=== PATIENT | female | born 1935 | race Caucasian/White ===

== ENCOUNTER 2017-06-11 11:55 | Outpatient (CLI) | payer MEDICARE, OTHER ==
[2017-06-11 12:51] LABS: IRON 78 ug/dL (28-170); TOTAL IRON BINDING CAPACITY 392 ug/dL (250-450); TRANSFERRIN 280 mg/dL (192-382)
== END 2017-06-11 11:56 | disposition home or self-care (01) ==
LOC: LAB 11:55
PROVIDERS: ATTEND Internal Medicine Gastroenterology
DX: D50.9 Iron deficiency anemia, unspecified (principal)
CPT/HCPCS: 36415; 82728; 83540; 84466; 85014

== ENCOUNTER 2018-01-21 09:04 | Outpatient (CLI) | payer MEDICARE, OTHER ==
[2018-01-21 09:31] LABS: BASOPHILS % (AUTO) 0.7 %; EOSINOPHILS # (AUTO) 0.2 10^3/uL (0.0-0.7); HGB - HEMOGLOBIN 13.8 g/dL (12.0-16.0); LYMPHOCYTES # (AUTO) 1.3 10^3/uL (1.5-3.5); LYMPHOCYTES % (AUTO) 26.2 %; MEAN CORPUSCULAR HEMOGLOBIN 31.8 pg (27.0-31.0); MEAN CORPUSCULAR HGB CONC 33.3 g/dL (32.0-36.0); MEAN CORPUSCULAR VOLUME 95.2 fL (81.0-99.0); MEAN PLATELET VOLUME 7.8 fL (7.9-10.8); MONOCYTES # (AUTO) 0.5 10^3/uL (0.0-1.0); MONOCYTES % (AUTO) 9.3 %; NEUTROPHILS # (AUTO) 3.1 10^3/uL (1.5-6.6); NEUTROPHILS % (AUTO) 60.8 %; PLT - PLATELET COUNT 178 10^3/uL (130-450); RED BLOOD COUNT 4.35 10^6/uL (4.20-5.40); RED CELL DISTRIBUTION WIDTH 13.7 % (12.0-15.0); WHITE BLOOD COUNT 5.1 x10^3/uL (4.8-10.8)
[2018-01-21 10:00] LABS: % IRON SATURATION 30 % (20-50); IRON 100 ug/dL (28-170); TOTAL IRON BINDING CAPACITY 336 ug/dL (250-450); TRANSFERRIN 240 mg/dL (192-382)
== END 2018-01-21 09:05 | disposition home or self-care (01) ==
LOC: LAB 09:04
PROVIDERS: ATTEND Internal Medicine Gastroenterology
DX: D50.9 Iron deficiency anemia, unspecified (principal); K55.21 Angiodysplasia of colon with hemorrhage
CPT/HCPCS: 36415; 82728; 83540; 84466; 85025

== ENCOUNTER 2018-06-17 14:36 | Outpatient (CLI) | payer MEDICARE, OTHER ==
[2018-06-17 15:20] LABS: BASOPHILS % (AUTO) 0.7 %; EOSINOPHILS # (AUTO) 0.2 10^3/uL (0.0-0.7); EOSINOPHILS % (AUTO) 3.9 %; HGB - HEMOGLOBIN 11.9 g/dL (12.0-16.0); LYMPHOCYTES # (AUTO) 1.6 10^3/uL (1.5-3.5); LYMPHOCYTES % (AUTO) 32.5 %; MEAN CORPUSCULAR HEMOGLOBIN 32.6 pg (27.0-31.0); MEAN CORPUSCULAR HGB CONC 35.1 g/dL (32.0-36.0); MEAN PLATELET VOLUME 7.7 fL (7.9-10.8); MONOCYTES # (AUTO) 0.4 10^3/uL (0.0-1.0); MONOCYTES % (AUTO) 8.7 %; NEUTROPHILS # (AUTO) 2.6 10^3/uL (1.5-6.6); NEUTROPHILS % (AUTO) 54.2 %; PLT - PLATELET COUNT 184 10^3/uL (130-450); RED BLOOD COUNT 3.66 10^6/uL (4.20-5.40); RED CELL DISTRIBUTION WIDTH 14.2 % (12.0-15.0); WHITE BLOOD COUNT 4.9 x10^3/uL (4.8-10.8)
[2018-06-17 15:35] LABS: % IRON SATURATION 31 % (20-50); IRON 98 ug/dL (28-170); TOTAL IRON BINDING CAPACITY 321 ug/dL (250-450); TRANSFERRIN 229 mg/dL (192-382)
== END 2018-06-17 14:37 | disposition home or self-care (01) ==
LOC: LAB 14:36
PROVIDERS: ATTEND Internal Medicine Gastroenterology
DX: K55.8 Other vascular disorders of intestine (principal)
CPT/HCPCS: 36415; 82728; 83540; 84466; 85025

== ENCOUNTER 2018-07-01 12:17 | Outpatient (CLI) | payer MEDICARE, OTHER ==
--- NOTE | 2018-07-01 14:34 | CT Report ---
Reason: LLQ ABDOMINAL PAIN Procedure Date: 07/01/2018 Accession Number: [id number] / [id number] Procedure: CT - Abdomen/Pelvis W/O CPT Code: FULL RESULT: EXAM: CT ABDOMEN AND PELVIS EXAM DATE: 07/01/2018 01:05 PM. CLINICAL HISTORY: LLQ ABDOMINAL PAIN. COMPARISONS: None. TECHNIQUE: Routine helical CT imaging was performed through the abdomen and pelvis. IV contrast: . Enteric contrast: No. Reconstructions: Coronal and sagittal. In accordance with CT protocol optimization, one or more of the following dose reduction techniques were utilized for this exam: automated exposure control, adjustment of mA and/or KV based on patient size, or use of iterative reconstructive technique. FINDINGS: Lung Bases: Unremarkable. Liver: Normal. No masses. Gallbladder/Bile Ducts: Status post cholecystectomy. Spleen: Normal. Pancreas: Normal. Adrenal Glands: Normal. Kidneys: Normal. No masses or hydronephrosis. Peritoneal Cavity/Bowel: The colon is redundant and demonstrates extensive diverticulosis within the pelvis the distal sigmoid colon demonstrates focal thickening and hazy surrounding fat compatible with diverticulitis. There is no evidence of abscess formation on the noncontrast study, limited sensitivity for this. No free fluid, free air or adenopathy. No masses. The appendix is well visualized and normal. Pelvic Organs: Normal. The bladder and visualized pelvic organs are within normal limits. Vasculature: Atherosclerosis without aneurysm. Bones: Degenerative changes of the lumbar spine including 5 mm of grade 1 anterolisthesis of L4 on L5. No aggressive osseous lesions detected. Other: None. IMPRESSION: Redundant sigmoid colon with extensive diverticulosis. Suspect mild focal diverticulitis in the distal sigmoid colon. RAD[facility] We attempted to directly relate the above findings over the phone with the office of Dr. Ha Salas repeatedly starting at approximately 1:10 PM and most recently at 14:30 hrs on 07/01/18. The physician in private practice has received our phone calls and agreed to reach out to the physicians and will attempt to find a medical provider willing accept a message. We will continue to reach out to the practice. ADDENDUM: 07/01/18 15:26 The findings were discussed directly with Dr. Salas at 3:[address] Rony Reed 07/01/2018.
== END 2018-07-01 12:18 | disposition home or self-care (01) ==
LOC: DI 12:17
PROVIDERS: ATTEND Internal Medicine Gastroenterology
DX: Q43.8 Other specified congenital malformations of intestine (principal); K57.30 Diverticulosis of large intestine without perforation or abscess without bleeding
CPT/HCPCS: 74176

== ENCOUNTER 2019-02-23 14:22 | Outpatient (CLI) | payer MEDICARE, OTHER ==
--- NOTE | 2019-02-24 08:45 | Mammography Report ---
Reason: ENCNTR SCREEN MAMMOGRAM FOR MALIGNANT NEOPLASM OF Procedure Date: 02/23/2019 Accession Number: [id number] / [id number] Procedure: FARHAD - Screening Mammo w/Vinnie CPT Code: FULL RESULT: EXAM: Screening Mammo w/Vinnie DATE: 02/23/2019 3:13 PM CLINICAL HISTORY: Screening encounter. History of early menses and late childbearing. TECHNIQUE: (B) - Bilateral CC and MLO views were obtained. COMPARISON: 11/23/2015 through 09/28/2009. PARENCHYMAL PATTERN: (A) - The breast(s) demonstrate(s) scattered fibroglandular densities. FINDINGS: There are typically benign large rodlike calcifications. A typically benign intramammary infiltrates noted in the left upper outer breast is stable. There are no suspicious masses, calcifications, or areas of distortion. IMPRESSION: Benign findings. BI-RADS category 2. RECOMMENDATION: (ANNUAL) - Recommend routine annual screening mammography. BI-RADS CATEGORY: (2) - Benign Findings. STANDARD QUALIFYING STATEMENTS: 1. This examination was not reviewed with the aid of Computer-Aided Detection (CAD). 2. A negative or benign imaging report should not preclude biopsy if clinically suspicious findings are present. 3. Dense breasts may obscure an underlying neoplasm. 4. This examination was reviewed with the aid of 3D breast imaging (tomosynthesis).
== END 2019-02-23 14:23 | disposition home or self-care (01) ==
LOC: DI 14:22
PROVIDERS: ATTEND Internal Medicine
DX: Z12.31 Encounter for screening mammogram for malignant neoplasm of breast (principal)
CPT/HCPCS: 77063; 77067

== ENCOUNTER 2020-02-01 07:47 | Outpatient (CLI) | payer MEDICARE, OTHER | END 2020-02-01 07:48 | disposition EMS.NT | LOC: EMS 07:47 | PROVIDERS: ATTEND Surgery | DX: F41.9 Anxiety disorder, unspecified (principal) ==

== ENCOUNTER 2020-08-09 15:45 | Outpatient (CLI) | payer MEDICARE, OTHER ==
--- NOTE | 2020-08-09 16:44 | Ultrasound Report ---
PROCEDURE: Duplex Ext Veins Left INDICATIONS: LLE EDEMA, PAIN TECHNIQUE: Real-time imaging, as well as color and pulse Doppler interrogation, were performed of the lower extr emity deep veins from the inguinal ligament to the popliteal fossa. COMPARISON: None. FINDINGS: The deep veins are normally compressible, and free of intraluminal thrombus. Color and pu lse Doppler demonstrate normal phasic intraluminal flow. There is normal augmentation response to di stal compression maneuver. Small amount of fluid in the left popliteal fossa measuring 4.3 x 0.6 x 1.3 cm, compatible with a Eloisa er's cyst. There is trace knee joint effusion. IMPRESSION: 1. No evidence for deep venous thrombosis. 2. A small Beasley's cyst. 3. Trace knee joint effusion. Reviewed by: Carlos Wasserman MD on 08/09/2020 4:43 PM PST Approved by: Carlos Wasserman MD on 08/09/2020 4:43 PM PST Station ID: [id number]
== END 2020-08-09 15:46 | disposition home or self-care (01) ==
LOC: DI 15:45
PROVIDERS: ATTEND Internal Medicine
DX: M71.22 Synovial cyst of popliteal space [Baker], left knee (principal); M25.462 Effusion, left knee

== ENCOUNTER 2021-04-26 13:23 | Outpatient (CLI) | payer MEDICARE, OTHER ==
[2021-04-26 13:37] LABS: BASOPHILS % (AUTO) 0.5 %; EOSINOPHILS # (AUTO) 0.2 10^3/uL (0.0-0.7); EOSINOPHILS % (AUTO) 2.7 %; HCT - HEMATOCRIT 40.2 % (37.0-47.0); HGB - HEMOGLOBIN 13.1 g/dL (12.0-16.0); LYMPHOCYTES # (AUTO) 1.5 10^3/uL (1.5-3.5); LYMPHOCYTES % (AUTO) 25.5 %; MEAN CORPUSCULAR HEMOGLOBIN 31.3 pg (27.0-31.0); MEAN CORPUSCULAR HGB CONC 32.6 g/dL (32.0-36.0); MEAN CORPUSCULAR VOLUME 96.2 fL (81.0-99.0); MEAN PLATELET VOLUME 9.6 fL (7.9-10.8); MONOCYTES # (AUTO) 0.6 10^3/uL (0.0-1.0); MONOCYTES % (AUTO) 9.4 %; NEUTROPHILS # (AUTO) 3.6 10^3/uL (1.5-6.6); NEUTROPHILS % (AUTO) 61.7 %; PLT - PLATELET COUNT 194 10^3/uL (130-450); RED BLOOD COUNT 4.18 10^6/uL (4.20-5.40); RED CELL DISTRIBUTION WIDTH 13.4 % (12.0-15.0); WHITE BLOOD COUNT 5.9 x10^3/uL (4.8-10.8)
[2021-04-26 14:00] LABS: % IRON SATURATION 28 % (20-50); IRON 104 ug/dL (28-170); TOTAL IRON BINDING CAPACITY 372 ug/dL (250-450); TRANSFERRIN 266 mg/dL (192-382)
== END 2021-04-26 13:24 | disposition home or self-care (01) ==
LOC: LAB 13:23
PROVIDERS: ATTEND Internal Medicine
DX: D64.9 Anemia, unspecified (principal); K92.2 Gastrointestinal hemorrhage, unspecified; R53.83 Other fatigue; R53.1 Weakness
CPT/HCPCS: 36415; 82728; 83540; 84466; 85025

== ENCOUNTER 2021-10-02 08:00 | Outpatient (CLI) | payer MEDICARE, OTHER ==
[2021-10-02 16:47] LABS: RAPID STREP SCREEN Negative (Negative)
== END 2021-10-02 23:59 | disposition home or self-care (01) ==
LOC: LAB 08:00
PROVIDERS: ATTEND Internal Medicine
DX: R05.9 Cough, unspecified (principal); R07.0 Pain in throat; Z20.822 Contact with and (suspected) exposure to COVID-19
CPT/HCPCS: 87070; 87430; U0004

== ENCOUNTER 2021-10-26 13:21 | Outpatient (CLI) | payer MEDICARE, OTHER ==
[2021-10-26 13:38] LABS: BASOPHILS % (AUTO) 0.4 %; EOSINOPHILS # (AUTO) 0.1 10^3/uL (0.0-0.7); HCT - HEMATOCRIT 38.8 % (37.0-47.0); HGB - HEMOGLOBIN 13.1 g/dL (12.0-16.0); LYMPHOCYTES # (AUTO) 1.6 10^3/uL (1.5-3.5); LYMPHOCYTES % (AUTO) 32.7 %; MEAN CORPUSCULAR HEMOGLOBIN 31.5 pg (27.0-31.0); MEAN CORPUSCULAR HGB CONC 33.8 g/dL (32.0-36.0); MEAN CORPUSCULAR VOLUME 93.3 fL (81.0-99.0); MEAN PLATELET VOLUME 9.2 fL (7.9-10.8); MONOCYTES # (AUTO) 0.5 10^3/uL (0.0-1.0); MONOCYTES % (AUTO) 10.2 %; NEUTROPHILS # (AUTO) 2.7 10^3/uL (1.5-6.6); NEUTROPHILS % (AUTO) 54.5 %; PLT - PLATELET COUNT 197 10^3/uL (130-450); RED BLOOD COUNT 4.16 10^6/uL (4.20-5.40); RED CELL DISTRIBUTION WIDTH 13.2 % (12.0-15.0); WHITE BLOOD COUNT 4.9 x10^3/uL (4.8-10.8)
[2021-10-26 13:59] LABS: ALBUMIN 4.3 g/dL (3.2-5.5); ALBUMIN/GLOBULIN RATIO 1.5 (1.0-2.2); ALKALINE PHOSPHATASE 44 IU/L (42-121); ALT ALANINE AMINOTRANSFERASE 14 IU/L (10-60); AST ASPARTATE AMINOTRANSFERASE 21 IU/L (10-42); BILIRUBIN,TOTAL 0.7 mg/dL (0.2-1.0); BUN - BLOOD UREA NITROGEN 20 mg/dL (6-20); CALCIUM 9.6 mg/dL (8.5-10.3); CARBON DIOXIDE - CO2 26 mmol/L (21-32); CHLORIDE 101 mmol/L (101-111); CHOL/HDL RATIO 3.4 (<4.4); CHOLESTEROL 174 mg/dL; CREATININE 0.8 mg/dL (0.4-1.0); GFR - MDRD 68 (>89); GLUCOSE 94 mg/dL (70-100); HDL CHOLESTEROL 51 mg/dL; LDL CHOLESTEROL,CALCULATED 110 mg/dL; LDL/HDL RATIO 2.2 (<4.4); POTASSIUM 4.6 mmol/L (3.5-5.0); SODIUM 136 mmol/L (135-145); TOTAL PROTEIN 7.2 g/dL (6.7-8.2); TRIGLYCERIDES 66 mg/dL; VLDL CHOLESTEROL 13 mg/dL
[2021-10-26 14:59] LABS: ESTIMATED AVERAGE GLUCOSE 151 mg/dL (70-100); HEMOGLOBIN A1c% 6.9 % (4.27-6.07)
--- NOTE | 2021-10-26 15:17 | Ultrasound Report ---
PROCEDURE: Duplex Lwr Ext Arterial Bilat INDICATIONS: MUSCLE CRAMPS, NO DISTAL PULSE TECHNIQUE: Color and pulse Doppler interrogation was performed of both lower extremity arterial systems, with im age documentation. COMPARISON: None FINDINGS: Right lower extremity: Common femoral artery: 112 cm/sec, with triphasic flow. Deep femoral artery: 6 cm/sec, with triphasic flow. Proximal superficial femoral artery: 112 cm/sec, with triphasic flow. Mid superficial femoral artery: 87 cm/sec, with triphasic flow. Distal superficial femoral artery: 93 cm/sec, with triphasic flow. Popliteal artery: 14 cm/sec, with triphasic flow. Posterior tibial artery: 103 cm/sec, with biphasic flow. Anterior tibial artery/dorsalis pedis: 66/52 cm/sec, with biphasic flow. Cornelius-scale imaging description: No significant plaque. Left lower extremity: Common femoral artery: 118 cm/sec, with triphasic flow. Deep femoral artery: 66 cm/sec, with triphasic flow. Proximal superficial femoral artery: 91 cm/sec, with triphasic flow. Mid superficial femoral artery: 87 cm/sec, with triphasic flow. Distal superficial femoral artery: 63 cm/sec, with triphasic flow. Popliteal artery: 108 cm/sec, with biphasic flow. Posterior tibial artery: 86 cm/sec, with biphasic flow. Anterior tibial artery/dorsalis pedis: 68/46 cm/sec, with biphasic flow. Cornelius-scale imaging description: No significant plaque IMPRESSION: No significant plaque and no significant stenosis in the bilateral lower extremities. Reviewed by: Tuan Obando on 10/26/2021 3:16 PM PDT Approved by: Tuan Obando on 10/26/2021 3:16 PM PDT Station ID: [id number]
== END 2021-10-26 13:22 | disposition home or self-care (01) ==
LOC: DI 13:21
PROVIDERS: ATTEND Internal Medicine
DX: M62.838 Other muscle spasm (principal); R09.89 Other specified symptoms and signs involving the circulatory and respiratory systems; Z79.899 Other long term (current) drug therapy; Z13.6 Encounter for screening for cardiovascular disorders; R53.83 Other fatigue; R73.01 Impaired fasting glucose; D64.9 Anemia, unspecified; K92.2 Gastrointestinal hemorrhage, unspecified; J45.909 Unspecified asthma, uncomplicated; I48.91 Unspecified atrial fibrillation
CPT/HCPCS: 36415; 80053; 80061; 83036; 83721; 84443; 85025; 93925

== ENCOUNTER 2022-04-10 11:24 | Outpatient (CLI) | payer MEDICARE, OTHER ==
[2022-04-10 12:37] LABS: ESTIMATED AVERAGE GLUCOSE 137 mg/dL (70-100); HEMOGLOBIN A1c% 6.4 % (4.27-6.07)
== END 2022-04-10 11:25 | disposition home or self-care (01) ==
LOC: LAB 11:24
PROVIDERS: ATTEND Internal Medicine
DX: R73.01 Impaired fasting glucose (principal)
CPT/HCPCS: 36415; 83036

== ENCOUNTER 2022-04-26 17:05 | Outpatient (CLI) | payer MEDICARE, OTHER ==
--- NOTE | 2022-04-27 09:28 | XRAY Report ---
PROCEDURE: Chest 2 View X-Ray INDICATIONS: ACUTE COUGH TECHNIQUE: 2 view(s) of the chest. COMPARISON: None. FINDINGS: Surgical changes and devices: None. Lungs and pleura: No pleural effusions or pneumothorax. Lungs are clear. Mediastinum: Mediastinal contours are normal. Heart size is normal. Bones and chest wall: No suspicious bony abnormalities. Soft tissues appear unremarkable. IMPRESSION: No evidence for active disease in the chest. Reviewed by: Yuan Montoya MD on 04/27/2022 9:27 AM PDT Approved by: Yuan Montoya MD on 04/27/2022 9:27 AM PDT Station ID: [id number]
== END 2022-04-26 17:06 | disposition home or self-care (01) ==
LOC: DI 17:05
PROVIDERS: ATTEND Internal Medicine
DX: R05.1 Acute cough (principal)

== ENCOUNTER 2022-10-12 21:26 | Outpatient (CLI) | payer MEDICARE, OTHER | END 2022-10-12 21:27 | disposition critical access hospital (66) | LOC: EMS 21:26 | DX: R42 Dizziness and giddiness (principal); R25.1 Tremor, unspecified; R53.81 Other malaise | CPT/HCPCS: A0425; A0429 ==

== ENCOUNTER 2022-10-12 21:38 | Emergency (ER) | payer MEDICARE, OTHER ==
[2022-10-12 22:52] LABS: BASOPHILS % (AUTO) 0.8 %; EOSINOPHILS # (AUTO) 0.1 10^3/uL (0.0-0.7); EOSINOPHILS % (AUTO) 2.7 %; HCT - HEMATOCRIT 39.9 % (37.0-47.0); LYMPHOCYTES # (AUTO) 1.7 10^3/uL (1.5-3.5); MEAN CORPUSCULAR HEMOGLOBIN 30.6 pg (27.0-31.0); MEAN CORPUSCULAR HGB CONC 32.6 g/dL (32.0-36.0); MEAN CORPUSCULAR VOLUME 93.9 fL (81.0-99.0); MEAN PLATELET VOLUME 10.2 fL (7.9-10.8); MONOCYTES # (AUTO) 0.6 10^3/uL (0.0-1.0); MONOCYTES % (AUTO) 10.9 %; NEUTROPHILS # (AUTO) 2.7 10^3/uL (1.5-6.6); NEUTROPHILS % (AUTO) 52.4 %; PLT - PLATELET COUNT 168 10^3/uL (130-450); RED BLOOD COUNT 4.25 10^6/uL (4.20-5.40); RED CELL DISTRIBUTION WIDTH 14.1 % (12.0-15.0); WHITE BLOOD COUNT 5.2 x10^3/uL (4.8-10.8)
[2022-10-12 23:02] LABS: ALBUMIN 3.8 g/dL (3.2-5.5); ALBUMIN/GLOBULIN RATIO 1.5 (1.0-2.2); BILIRUBIN,TOTAL 0.9 mg/dL (0.2-1.0); CALCIUM 9.6 mg/dL (8.5-10.3); CREATININE 0.9 mg/dL (0.4-1.0); MAGNESIUM 2.1 mg/dL (1.7-2.8); POTASSIUM 4.3 mmol/L (3.5-5.0); TOTAL PROTEIN 6.4 g/dL (6.7-8.2)
--- NOTE | 2022-10-13 00:48 | ED Physician Documentation ---
PD HPI SYNCOPE - Stated complaint Stated Complaint: DIZZY, TREMORS - Chief complaint Chief Complaint: Cardiac - History obtained from History obtained from: Patient, EMS - History of Present Illness Witnessed: Witnessed Timing - onset: Today Duration: Other (the tremoring is improved and not lightheaded now. Still with the whispery voice.) Preceding symptoms: Light headed, Generalized weakness. No: Headache, Chest pain, Abdominal pain Associated symptoms: Other (she was doing light activity and reached forward and noted onset of feeling lightheaded. No vertigo per se. She did not have chest pain nor headache. Sat and rested but still lightheaded. Noted onset of tremoring/shaking extremities. She tried talking and noted it to be whispery. no focal weakness.). No: Chest pain, Palpitations, Dyspnea, Nausea / vomiting Contributing factors: No: Recent med change, Decreased PO intake Injury occurred: No: Fell, Head injury Similar symptoms before: No diagnosis (she has noted the tremoring when anxious or ill in the past. she says she has had the whispery voice happen intermittently, often triggered by an illness but not always, and has lasted anywhere from hours/days to even up to a few weeks at times. Had not been to provider during the episodes.) Recently seen: Other (had not been to provider with the voice change episode in the past but did discuss it with provider and was getting referral to ENT but pt did not ever follow up. She feels it can be left to improve on its own. Has not had problems eating nor breathing with it.) Review of Systems Constitutional: denies: Fever, Chills Eyes: denies: Loss of vision, Decreased vision Nose: denies: Rhinorrhea / runny nose, Congestion Throat: denies: Sore throat Cardiac: denies: Chest pain / pressure, Palpitations, Pedal edema, Calf pain Respiratory: denies: Cough GI: denies: Abdominal Pain, Nausea, Vomiting, Diarrhea Neurologic: reports: Generalized weakness. denies: Focal weakness, Numbness, Headache, Head injury PD PAST MEDICAL HISTORY - Past Medical History Cardiovascular: Atrial fibrillation Respiratory: Asthma Neuro: None Endocrine/Autoimmune: None - Past Surgical History Past Surgical History: Yes General: Cholecystectomy Derm: Skin cancer surgery - Present Medications Home Medications: Ambulatory Orders Medication Instructions Recorded Confirmed Aspirin [Aspir 81] 81 mg PO DAILY 10/25/13 10/12/22 Diltiazem HCl [Diltiazem 24Hr Cd] 120 mg PRN 10/25/13 10/25/13 Tiotropium [Spiriva] 4 puffs INH DAILY 10/25/13 10/12/22 - Allergies Allergies/Adverse Reactions: Allergies Allergy/AdvReac Type Severity Reaction Status Date / Time epinephrine Allergy Intermediate Rash Verified 10/25/13 01:49 grapefruit [Grapefruit] Allergy Intermediate Unknown Verified 10/25/13 03:01 iodine Allergy Intermediate Rash Verified 10/25/13 01:52 neomycin [Neomycin] Allergy Intermediate Rash Verified 10/25/13 01:52 Penicillins Allergy Intermediate Rash Verified 10/25/13 01:50 Sulfa (Sulfonamide Allergy Intermediate Rash Verified 10/25/13 01:51 Antibiotics) gabapentin Allergy Anaphylaxis Verified 10/12/22 22:06 prochlorperazine Allergy Anaphylaxis Verified 10/12/22 22:06 [From Compazine] ropivacaine Allergy Anaphylaxis Verified 10/12/22 22:06 sulfite Allergy Anaphylaxis Verified 10/12/22 22:04 albuterol AdvReac Intermediate Respiratory Verified 10/25/13 02:18 codeine AdvReac Intermediate Nausea/Vomi Verified 10/25/13 02:54 ting montelukast sodium * AdvReac Intermediate Respiratory Verified 10/25/13 02:17 [From Singulair] sotalol [Sotalol] AdvReac Intermediate Depression/ Verified 10/25/13 02:55 Exhaustion tetracycline [Tetracycline] AdvReac Intermediate fever Verified 10/25/13 02:16 zolpidem tartrate * AdvReac Intermediate wired Verified 10/25/13 02:54 [From Ambien] antazoline phosphate * AdvReac Unknown Verified 10/25/13 02:53 [From Vasocon-A] minocycline [From Minocin] AdvReac Rash Verified 10/12/22 22:08 montelukast [From Singulair] AdvReac Respiratory Verified 10/12/22 22:08 naphazoline HCl * AdvReac Unknown Verified 10/25/13 02:53 [From Vasocon-A] thallium-201 AdvReac Unknown Verified 10/12/22 22:11 warfarin AdvReac Unknown Verified 10/12/22 22:11 zolpidem [From Ambien] AdvReac Anxiety Verified 10/12/22 22:11 Shrimp Allergy Intermediate Unknown Uncoded 10/25/13 02:58 - Social History Does the pt smoke?: No Smoking Status: Never smoker Does the pt drink ETOH?: Yes Does the pt have substance abuse?: No - Immunizations Immunizations are current?: Yes - POLST Patient has POLST: No PD ED PE NORMAL - Vitals Vital signs reviewed: Yes - General General: Alert and oriented X 3, No acute distress, Well developed/nourished, Other (whispery voice. I would not say hoarse. Just not able to get loud sound. ) - HEENT HEENT: PERRL, EOMI, Moist mucous membranes, Pharynx benign, Other (denies vision change. ) - Neck Neck: Supple, no meningeal sign, No adenopathy - Cardiac Cardiac: RRR, Other (1/6 murmur without radiation. ) - Respiratory Respiratory: Clear bilaterally - Abdomen Abdomen: Soft, Non tender - Derm Derm: Normal color, Warm and dry - Extremities Extremities: No deformity, No tenderness to palpate - Neuro Neuro: Alert and oriented X 3, ampoule filler 2-12 intact, No motor deficit, No sensory deficit. No: Normal speech (content and articulation is good, just the tone is whispery. ) Eye Opening: Spontaneous Motor: Obeys Commands Verbal: Oriented GCS Score: 15 Results - Vitals Vitals: Vital Signs - 24 hr 10/12/22 10/12/22 10/13/22 21:40 23:06 01:03 Temperature 36.4 C L Heart Rate 74 67 66 Respiratory 19 17 17 Rate Blood Pressure 163/61 H 151/53 H 154/62 H O2 Saturation 96 95 97 Oxygen O2 Source Room air - EKG (time done) 21;46 Rate: Rate (enter#) (74) Rhythm: NSR [place]: Normal Intervals: Normal [place] QRS: Normal Ischemia: Normal ST segments. No: ST elevation c/w ischemia, ST depression - Labs Labs: Laboratory Tests 10/12/22 10/12/22 10/12/22 21:55 21:55 21:55 WBC 5.2 RBC 4.25 Hgb 13.0 Hct 39.9 MCV 93.9 MCH 30.6 MCHC 32.6 RDW 14.1 Plt Count 168 MPV 10.2 Neut # (Auto) 2.7 Lymph # (Auto) 1.7 [place] # (Auto) 0.6 Eos # (Auto) 0.1 Baso # (Auto) 0.0 Absolute Nucleated RBC 0.00 Nucleated RBC % 0.0 ESR 3 Sodium 139 Potassium 4.3 Chloride 105 Carbon Dioxide 25 Anion Gap 9.0 BUN 29 H Creatinine 0.9 Estimated GFR (MDRD) 60 L Glucose 165 H Calcium 9.6 Magnesium 2.1 Total Bilirubin 0.9 AST 18 ALT 11 Alkaline Phosphatase 45 Total Protein 6.4 L Albumin 3.8 Globulin 2.6 Albumin/Globulin Ratio 1.5 Lipase 41 TSH 10/12/22 21:55 WBC RBC Hgb Hct MCV MCH MCHC RDW Plt Count MPV Neut # (Auto) Lymph # (Auto) [place] # (Auto) Eos # (Auto) Baso # (Auto) Absolute Nucleated RBC Nucleated RBC % ESR Sodium Potassium Chloride Carbon Dioxide Anion Gap BUN Creatinine Estimated GFR (MDRD) Glucose Calcium Magnesium Total Bilirubin AST ALT Alkaline Phosphatase Total Protein Albumin Globulin Albumin/Globulin Ratio Lipase TSH 2.33 PD Medical Decision Making - ED course Complexity details: considered differential, d/w patient ED course: the lightheadedness is not clear cause. Got basic labs and ecg without abnormality. Vitals are good here. The lightheaded is improved. Her tremoring is improved as well and it was generalized so i presume just related to anxious/catecholamine of the event. the whipsery voice is still present. we do not have ability to visiualize the vocal cords easily here. Could try with GlideScope but patient prefers not. She had had reactions to topical anesth in the past and does not want to try spray in throat. Unclear if it is a vocal cord process. She does not have any facial droop nor ptosis to suggest [place]. No neck masses nor tenderness. No other CN weaknesses nor abnormal. Central causes I would think would have other symptoms too. to be so local, could consider focal lesions like ms, expiecially in lieu of her description of recurring episodes that can last even days/weeks. Could consider MRI brain and neck to evaluate it. I do not see emergent timeing for it as has had it previously without problems. She was cautiioned about elevated sleeping in concern of aspiration if it were vocal cord dysfunciton. She says she does anyway. Departure - Departure Disposition: Home, Self Care Clinical Impression: Hoarseness of voice, Tremor, Generalized weakness Condition: Stable Record reviewed to determine appropriate education?: Yes Instructions: ED Weakness [facility] Follow-Up: Martina Sanchez MD [Provider Admit Priv/Credential] - Comments: It is unclear the cause of your tremoring and general weakness. You seem to be well here now. Your blood pressure and heart rate and basic blood tests are normal. Regarding the hoarseness of your voice, especially as you describe episodes of it lasting for weeks at a time in the past, I am not sure what the cause of it is. Considerations would be for problems related to the vocal cord some cells versus the innervation around the neck. Other consideration would be brain/neurologic with localized neurologic dysfunction. Intermittent episodes could happen like that with conditions such as MS. If you wish to pursue it more, follow-up with your primary care with considerations of MRI of the head and neck and possibly a ENT referral to evaluate the vocal cords and throat. It is possible to have this happen from other more simple conditions such as functional neurologic disorder or muscle tension dysphonia which is like a fatiguing of the vocal cords. Follow-up with your primary care if you have persisting symptoms or recurrent symptoms with regard to the weakness and tremor. Discharge Date/Time: 10/13/22 01:27
[2022-10-13 01:03] VITALS: BP 154/62
[2022-10-15 07:08] LABS: COMPLEMENT C3 99 mg/dL (82-167); COMPLEMENT C4 20 mg/dL (12-38)
== END 2022-10-13 01:27 | disposition home or self-care (01) ==
LOC: EDUNIT# → ED 21:38
DX: R49.0 Dysphonia (principal); R25.1 Tremor, unspecified; R53.1 Weakness
CPT/HCPCS: 36415; 80053; 83690; 83735; 84443; 85025; 85651; 86160; 99283

== ENCOUNTER 2022-10-26 12:53 | Outpatient (CLI) | payer MEDICARE, OTHER ==
[~2022-10-26 12:53] MED LIST: GADOBUTROL 10 MMOL/10 ML VIAL ONE
--- NOTE | 2022-10-26 15:52 | MRI Report ---
PROCEDURE: BRAIN WO INDICATIONS: MYOCLONUS TECHNIQUE: Noncontrast axial T1 spin echo, axial T2 fast spin echo, sagittal and axial FLAIR, coronal T2 fast sp in echo, axial gradient echo, axial diffusion and ADC through the brain. COMPARISON: None. FINDINGS: Image quality: Excellent. CSF Spaces: Basal cisterns are patent. No extra-axial fluid collections. Ventricles are normal in size and shape. Brain: No intracranial masses or hemorrhage. Cornelius/white matter interface is normal. There is modera te diffuse cerebral volume loss. Mild degree of patchy high FLAIR signal within the periventricular a nd subcortical white matter. Brainstem appears normal. Diffusion-weighted images demonstrate no acut e ischemic insult. No chronic ischemic insults. Normal intravascular flow voids are present. Skull and face: Calvarium has normal marrow signal. Orbits appear normal. Sinuses: There is mild mucosal thickening within the bilateral ethmoid air cells. Mastoids are clear. IMPRESSION: 1. Volume loss and small vessel ischemic disease. 2. No acute process. No recent infarct. 3. Sinus disease. Reviewed by: Soco Greenfield MD on 10/26/2022 3:50 PM PDT Approved by: Soco Greenfield MD on 10/26/2022 3:50 PM PDT Station ID: [id number]
== END 2022-10-26 12:54 | disposition home or self-care (01) ==
LOC: DI 12:53
PROVIDERS: ATTEND Internal Medicine
DX: I67.82 Cerebral ischemia (principal); G25.3 Myoclonus; J32.9 Chronic sinusitis, unspecified

== ENCOUNTER 2023-03-18 13:53 | Emergency (ER) | payer MEDICARE, OTHER ==
--- NOTE | 2023-03-18 15:01 | ED Physician Documentation ---
PD HPI CHEST PAIN - Stated complaint Stated Complaint: HIGH BLOOD PRESSURE - Chief complaint Chief Complaint: Cardiac - Additional information Additional information: This is an 87-year-old female with a past medical history of hypertension, atrial fibrillation (on aspirin, no ac per personal preference, didn't tolerated warfarin and was worried about the newer DOACs), anxiety. She presents today due to concerns about her blood pressure. She states that she felt "fuzzy" and somewhat dizzy earlier today and also had some mild shortness of breath and mild chest pressure. She checked her blood pressure at the time and it was quite el evated in the 190s over 100s. She does admit that she had not taken her losartan for several months or had been taking it only intermittently, because she previously was dealing with some occasional falls thought related to her losartan. She states her doctor nor her cobol developer recommended that she stop it but she stopped it on her own. When she would like her blood pressure was elevated, she took a dose of 75 mg of losartan which was her prior dose. She is feeling better at this time, is not having any chest pain, dyspnea, headache, vision changes, confusion or alteration in mental status, no numbness tingling in her extremities, no ataxia, no speech changes. She states that she was supposed to drive over to [place] to visit her who is in an assisted living facility there but she did not feel like she should drive due to how she was feeling. She does endorse significant stress recently and anxiety about care of her among other things. PD PAST MEDICAL HISTORY - Past Medical History Past Medical History: Yes Cardiovascular: Atrial fibrillation Respiratory: Asthma Neuro: None Endocrine/Autoimmune: None - Past Surgical History Past Surgical History: Yes General: Cholecystectomy Derm: Skin cancer surgery - Present Medications Home Medications: Ambulatory Orders Medication Instructions Recorded Confirmed Aspirin [Aspir 81] 81 mg PO DAILY 10/25/13 10/12/22 Diltiazem HCl [Diltiazem 24Hr Cd] 120 mg PRN 10/25/13 10/25/13 Tiotropium [Spiriva] 4 puffs INH DAILY 10/25/13 10/12/22 Losartan [Cozaar] 50 mg PO DAILY #30 tablet 03/18/23 - Allergies Allergies/Adverse Reactions: Allergies Allergy/AdvReac Type Severity Reaction Status Date / Time epinephrine Allergy Intermediate Rash Verified 10/25/13 01:49 grapefruit [Grapefruit] Allergy Intermediate Unknown Verified 10/25/13 03:01 iodine Allergy Intermediate Rash Verified 10/25/13 01:52 neomycin [Neomycin] Allergy Intermediate Rash Verified 10/25/13 01:52 Penicillins Allergy Intermediate Rash Verified 10/25/13 01:50 Sulfa (Sulfonamide Allergy Intermediate Rash Verified 10/25/13 01:51 Antibiotics) gabapentin Allergy Anaphylaxis Verified 10/12/22 22:06 prochlorperazine Allergy Anaphylaxis Verified 10/12/22 22:06 [From Compazine] ropivacaine Allergy Anaphylaxis Verified 10/12/22 22:06 sulfite Allergy Anaphylaxis Verified 10/12/22 22:04 albuterol AdvReac Intermediate Respiratory Verified 03/18/23 13:56 codeine AdvReac Intermediate Nausea/Vomi Verified 03/18/23 13:56 ting montelukast sodium * AdvReac Intermediate Respiratory Verified 03/18/23 13:56 [From Singulair] sotalol [Sotalol] AdvReac Intermediate Depression/ Verified 03/18/23 13:56 Exhaustion tetracycline [Tetracycline] AdvReac Intermediate fever Verified 03/18/23 13:56 zolpidem tartrate * AdvReac Intermediate wired Verified 03/18/23 13:56 [From Ambien] antazoline phosphate * AdvReac Unknown Verified 03/18/23 13:56 [From Vasocon-A] minocycline [From Minocin] AdvReac Rash Verified 03/18/23 13:56 montelukast [From Singulair] AdvReac Respiratory Verified 03/18/23 13:56 naphazoline HCl * AdvReac Unknown Verified 03/18/23 13:56 [From Vasocon-A] thallium-201 AdvReac Unknown Verified 03/18/23 13:56 warfarin AdvReac Unknown Verified 03/18/23 13:56 zolpidem [From Ambien] AdvReac Anxiety Verified 03/18/23 13:56 Shrimp Allergy Intermediate Unknown Uncoded 03/18/23 13:56 - Social History Does the pt smoke?: No Smoking Status: Never smoker Does the pt drink ETOH?: Yes Does the pt have substance abuse?: No - Immunizations Immunizations are current?: Yes - POLST Patient has POLST: No PD ED PE NORMAL - Vitals Vital signs reviewed: Yes - General General: Alert and oriented X 3, No acute distress, Well developed/nourished, Other - HEENT HEENT: Atraumatic, Moist mucous membranes - Neck Neck: Supple, no meningeal sign, No JVD - Cardiac Cardiac: RRR, No murmur, No gallop, No rub, Strong equal pulses - Respiratory Respiratory: No respiratory distress, Clear bilaterally - Abdomen Abdomen: Normal bowel sounds, Soft, Non tender, Non distended - Derm Derm: Normal color, Warm and dry - Extremities Extremities: No calf tenderness / cord, Other (Chronic lymphedema bilateral lower extremities, no erythema, stable) - Neuro Neuro: Alert and oriented X 3 Eye Opening: Spontaneous Motor: Obeys Commands Verbal: Oriented GCS Score: 15 - Psych Psych: Normal mood, Normal affect Results - Vitals Vitals: Vital Signs - 24 hr 03/18/23 03/18/23 03/18/23 13:56 14:35 15:31 Temperature 36.5 C Heart Rate 77 71 60 Respiratory 18 15 19 Rate Blood Pressure 198/86 H 182/79 H 162/65 H O2 Saturation 97 95 97 03/18/23 15:54 Temperature Heart Rate 59 L Respiratory 15 Rate Blood Pressure 162/65 H O2 Saturation 98 Oxygen O2 Source Room air - EKG (time done) No standard instances EKG releavant findings:: EKG personally interpreted by author of this note. Relevant findings are: Rate: Rate (enter#) (57) Rhythm: Sinus bradycardia [place]: LAD Intervals: Normal CT QRS: Normal Ischemia: Normal ST segments Computer interpretation: Agree with computer - Labs Labs: Laboratory Tests 03/18/23 03/18/23 15:08 15:08 WBC 4.9 RBC 4.49 Hgb 13.5 Hct 41.9 MCV 93.3 MCH 30.1 MCHC 32.2 RDW 14.4 Plt Count 192 MPV 9.3 Neut # (Auto) 2.8 Lymph # (Auto) 1.5 Grand # (Auto) 0.4 Eos # (Auto) 0.1 Baso # (Auto) 0.1 Absolute Nucleated RBC 0.00 Nucleated RBC % 0.0 Sodium 137 Potassium 4.4 Chloride 105 Carbon Dioxide 29 Anion Gap 3.0 L BUN 19 Creatinine 0.7 Estimated GFR (MDRD) 80 L Glucose 138 H Calcium 9.6 Total Bilirubin 0.6 AST 15 ALT 8 L Alkaline Phosphatase 70 Troponin I High Sens 9.1 Total Protein 7.0 Albumin 4.0 Globulin 3.0 Albumin/Globulin Ratio 1.3 Lipase 21 - Rads (name of study) No standard instances Relevant Findings:: Final report received PD Medical Decision Making - ED course Complexity details: reviewed old records, reviewed results, re-evaluated patient, considered differential, d/w patient ED course: 87-year-old female presented with chest discomfort, shortness of breath, "feeling fuzzy," and hypertension earlier today. Differentials considered included ACS, acute fluid overload, hypertension, CVA, and less likely PE pneumonia or other lung disease. She is completely symptom-free here and well- appearing on physical exam though initially quite hypertensive. She is mildly tearful and anxious, stating she had a number of stressors and was concerned about her At his care facility. Her physical exam is reassuring, no acute neurologic changes, she is in normal sinus rhythm, EKG shows no ischemic changes. Chest x-ray is negative for acute findings, and her labs are all reassuring. Her symptoms are likely due to hypertension as well as stress/anxiety. The patient had taken 75 mg of losartan prior to arrival and her blood pressure did drop. It remains somewhat elevated in the 160s over 90s however patient now is completely asymptomatic No further advised to continue the losartan daily as previously prescribed the patient states that her blood pressure has fallen in the past with this therefore I gave her a prescription for 50 mg of losartan daily and recommended she follow-up with her PCP in the next week or 2 to have her blood pressure rechecked and adjust her blood pressure medicine as needed. I discussed return precautions in detail with the patient. Departure - Departure Disposition: 01 Home, Self Care Clinical Impression: Atypical chest pain Hypertension Qualifiers: Hypertension type: unspecified Qualified Code(s): I10 - Essential (primary) hypertension Condition: Good Instructions: ED Chest Pain Atypical Unkn Cause, ED HTN Established Prescriptions: Losartan [Cozaar] 50 mg PO DAILY #30 tablet Comments: I have re-ordered your blood pressure medication at a lower dose (50mg) to try and reduce the side effects you had previously. Your workup here was otherwise normal. Please continue close follow up with your primary doctor and cobol developer regarding your blood pressure. Forms: PCP List Discharge Date/Time: 03/18/23 15:55
[2023-03-18 15:15] LABS: BASOPHILS # (AUTO) 0.1 10^3/uL (0.0-0.1); EOSINOPHILS # (AUTO) 0.1 10^3/uL (0.0-0.7); EOSINOPHILS % (AUTO) 2.9 %; HCT - HEMATOCRIT 41.9 % (37.0-47.0); HGB - HEMOGLOBIN 13.5 g/dL (12.0-16.0); LYMPHOCYTES # (AUTO) 1.5 10^3/uL (1.5-3.5); LYMPHOCYTES % (AUTO) 29.9 %; MEAN CORPUSCULAR HEMOGLOBIN 30.1 pg (27.0-31.0); MEAN CORPUSCULAR HGB CONC 32.2 g/dL (32.0-36.0); MEAN CORPUSCULAR VOLUME 93.3 fL (81.0-99.0); MEAN PLATELET VOLUME 9.3 fL (7.9-10.8); MONOCYTES # (AUTO) 0.4 10^3/uL (0.0-1.0); MONOCYTES % (AUTO) 9.1 %; NEUTROPHILS # (AUTO) 2.8 10^3/uL (1.5-6.6); NEUTROPHILS % (AUTO) 56.9 %; PLT - PLATELET COUNT 192 10^3/uL (130-450); RED BLOOD COUNT 4.49 10^6/uL (4.20-5.40); RED CELL DISTRIBUTION WIDTH 14.4 % (12.0-15.0); WHITE BLOOD COUNT 4.9 x10^3/uL (4.8-10.8)
[2023-03-18 15:34] VITALS: BP 162/65
[2023-03-18 15:41] LABS: TROPONIN I HIGH SENSITIVITY 9.1 ng/L (2.3-14.8)
[2023-03-18 15:44] LABS: ALBUMIN/GLOBULIN RATIO 1.3 (1.0-2.2); BILIRUBIN,TOTAL 0.6 mg/dL (0.2-1.0); CALCIUM 9.6 mg/dL (8.5-10.3); CREATININE 0.7 mg/dL (0.6-1.3); POTASSIUM 4.4 mmol/L (3.5-4.5)
--- NOTE | 2023-03-18 15:52 | XRAY Report ---
PROCEDURE: Chest 1 View X-Ray INDICATIONS: Chest Pain TECHNIQUE: One view of the chest was acquired. COMPARISON: 04/26/2022. FINDINGS: Surgical changes and devices: None. Lungs and pleura: No pleural effusions or pneumothorax. Stable appearance of hyperaeration and arsh ening of the hemidiaphragms. No focal consolidation. Mediastinum: Mediastinal contours appear normal. Heart size is normal. Bones and chest wall: No suspicious bony lesions. Overlying soft tissues appear unremarkable. IMPRESSION: Stable examination of the chest without acute cardiopulmonary abnormalities or focal airspace disease . Reviewed by: Rommel Ambrosio MD on 03/18/2023 3:50 PM PDT Approved by: Rommel Ambrosio MD on 03/18/2023 3:50 PM PDT Station ID: [id number]
[2023-03-18 16:03] VITALS: O2SAT 98
== END 2023-03-18 15:55 | disposition home or self-care (01) ==
LOC: ED 13:53
DX: R07.89 Other chest pain (principal); I10 Essential (primary) hypertension; I48.91 Unspecified atrial fibrillation; Z79.82 Long term (current) use of aspirin; Z79.899 Other long term (current) drug therapy
CPT/HCPCS: 36415; 80053; 83690; 84484; 85025; 93005; 99284

== ENCOUNTER 2023-12-05 11:31 | Outpatient (CLI) | payer MEDICARE, OTHER ==
--- NOTE | 2023-12-06 08:07 | Mammography Report ---
BILATERAL DIGITAL SCREENING MAMMOGRAM 3D/2D: 12/05/2023 CLINICAL: Routine screening. Comparison is made to exams dated: 02/23/2019 mammogram and 11/23/2015 mammogram - [facility]. There are scattered areas of fibroglandular density in both breasts (category b / 25%-50% glandular t issue). No significant masses, calcifications, or other findings are seen in either breast. There has been no significant interval change. IMPRESSION: NEGATIVE There is no mammographic evidence of malignancy. A 1 year screening mammogram is recommended. This exam was interpreted at Station ID: [id number]. NOTE: For mammograms, a report in lay terms will be sent to the patient. Approximately 15% of breast malignancies will not be visualized mammographically. In the management of a palpable breast mass, a negative mammogram must not discourage biopsy of a clinically suspicious lesion. Electronically Signed By: Ian reyes/penrad:12/05/2023 13:02:02 letter sent: No_Letter ACR BI-RADS Category 1: Negative [id number] PARENCHYMAL PATTERN: (A) - The breast(s) demonstrate(s) scattered fibroglandular densities. BI-RADS CATEGORY: (1) - 1 RECOMMENDATION: (ANNUAL) - Recommend routine annual screening mammography. [id number] 1 year screening LATERALITY: (B)
== END 2023-12-05 11:32 | disposition home or self-care (01) ==
LOC: DI 11:31
PROVIDERS: ATTEND Internal Medicine
DX: Z12.31 Encounter for screening mammogram for malignant neoplasm of breast (principal); R92.323 Mammographic fibroglandular density, bilateral breasts